=== PATIENT | male | born 1995 | race Caucasian/White ===

== ENCOUNTER → 2019-05-22 | Outpatient (CLI) | payer OTHER ==
[2019-05-22 16:31] LABS: Basophils # (A) 0.1 k/uL (0-0.2); Basophils % (A) 2 %; Eosinophils # (A) 0.4 k/uL (0-0.7); Eosinophils % (A) 7 %; HCT 46.8 % (39.0-53.0); HGB 15.5 gm/dL (13.0-17.5); Lymphocytes # (A) 2.1 k/uL (1.0-4.8); Lymphocytes % (A) 38 %; MCH 30.1 pg (25.0-35.0); MCHC 33.1 g/dL (31.0-37.0); MCV 91.1 fL (80.0-100.0); Mean Platelet Volume 6.6; Monocytes # (A) 0.3 k/uL (0-1.0); Monocytes % (A) 5 %; Neutrophils # (A) 2.4 k/uL (1.3-7.7); Neutrophils % (A) 45 %; Platelet Count 267 k/uL (150-450); RBC 5.14 m/uL (4.30-5.90); RDW 12.5 % (11.5-15.5); WBC 5.4 k/uL (3.8-10.6)
[2019-05-22 16:44] LABS: Potassium 4.1 mmol/L (3.5-5.1)
== END | disposition home or self-care (01) ==
LOC: LABPAT 16:09
PROVIDERS: ATTEND Orthopaedic Surgery
DX: Z01.812 Encounter for preprocedural laboratory examination (principal); M23.91 Unspecified internal derangement of right knee
CPT/HCPCS: 80051; 85025

== ENCOUNTER 2019-05-28 06:18 | Day surgery (SDC) | payer BC, OTHER ==
[2019-05-26 11:00] VITALS: BMI 28.7
--- NOTE | 2019-05-27 16:00 | HP ---
HISTORY AND PHYSICAL DATE OF SURGERY: 05/28/2019 Sahil Hurst is a 23-year-old patient seen with progressive right knee pain. We discussed options for treatment. He elected to proceed with right knee arthroscopy. Consent was obtained. PAST MEDICAL HISTORY: Noncontributory. PAST SURGICAL HISTORY: Right knee arthroscopy with ACL reconstruction. DAILY MEDICATIONS: None. ALLERGIES: NONE. SOCIAL HISTORY: Denies tobacco use. PHYSICAL EVALUATION OF THE RIGHT KNEE: Range of motion is 0 to 130. Mild effusion. Tenderness, medial and lateral joint lines. Positive medial Johnathon's. Positive lateral Johnathon's. Plus one Luanne. Good endpoint felt. Collateral ligaments are stable. RADIOGRAPHS: Radiographs of the right knee revealed Endobuttons to include one along the medial aspect of the knee. MRI of right knee revealed medial and lateral meniscal tears, single-graft ACL tear. IMPRESSION: Internal derangement of right knee with medial and lateral meniscal tears and possible ACL graft tear. PLAN: Right knee arthroscopy with partial meniscectomy and debridement. MMODL / IJN: [id number] /
[~2019-05-28 06:18] MED LIST: DEXAMETHASONE SOD PHOSPHATE 10 MG/ML 1 ML VIAL IV ONE; HYDROmorphone 0.5 MG/0.5 ML SYRINGE IVP PRN; LACTATED RINGERS 1,000 ML IV SCH; LIDOCAINE 1% 20 ML VIAL (10MG/ML) FOR IV START INTRADERMA PRN; MIDAZOLAM 2 MG/2 ML VIAL IV PRN; ONDANSETRON 4 MG/2 ML VIAL IVP ONE; SCOPOLAMINE 1.5MG/72HR PATCH TRANSDERM ONE
[2019-05-28] MEDS ORDERED: KETOROLAC 30 MG/ML 1 ML VIAL ONE (07:25)
[2019-05-28] MEDS ORDERED: LIDOCAINE 1% INJ 10MG/ML (20 ML MDV) ONE (07:25)
[2019-05-28] MEDS ORDERED: fentaNYL (PF) 50 MCG/ML 2 ML AMP ONE (07:25)
[2019-05-28] MEDS ORDERED: MEPERIDINE 50 MG/ML SYRINGE ONE (07:25)
[2019-05-28] MEDS ORDERED: MIDAZOLAM 2 MG/2 ML VIAL ONE (07:25)
[2019-05-28] MEDS ORDERED: PROPOFOL 10 MG/ML 20 ML VIAL IV ONE (07:25)
[2019-05-28] MEDS ORDERED: KETAMINE 10 MG/ML 20 ML VIAL ONE (07:25)
[2019-05-28] MEDS ORDERED: BUPIVACAINE (PF) 0.25% 30 ML VIAL SQ ONE (07:49)
[2019-05-28] MEDS ORDERED: SODIUM CHLORIDE 0.9% 1,000 ML IV ONE (08:29)
[2019-05-28 08:32] VITALS: TEMP 97.5
--- NOTE | 2019-05-28 08:37 | P.OP ---
Date of Procedure: 05/28/19 Preoperative Diagnosis: Internal derangement right knee Postoperative Diagnosis: 1. Tear medial meniscus right knee 2. Partial ACL tear right knee 3. Reactive synovitis medial, lateral and suprapatellar compartments right knee Procedure(s) Performed: 1. Arthroscopic partial medial meniscectomy right knee 2. Arthroscopic debridement partial ACL tear right knee 3. Arthroscopic partial synovectomy medial, lateral and suprapatellar compartments right knee Anesthesia: LUPILLOA, local Surgeon: Hudson Kaur Estimated Blood Loss (ml): 5 Pathology: none sent Condition: stable Disposition: PACU Indications for Procedure: 23-year-old patient seen with progressive right knee pain. After treatment options were discussed, he elected to proceed with arthroscopy. Operative Findings: See description of procedure Description of Procedure: Patient was taken to the operative suite. Patient underwent a general anesthetic by the department of anesthesia. Patient was given preoperative antibiotics. The right lower extremity was placed in a well-padded arthroscopic leg wang. The right leg was prepped and draped in the normal sterile orthopedic fashion. A lateral parapatellar and suprapatellar incision was made. Trochars were inserted. Arthroscopy was initiated. Suprapatellar pouch revealed diffuse thick reactive synovitis. The patellofemoral joint appeared to articulate congruently. There with grade 1 chondromalacia changes of the patella with no osteochondral tears present. The scope was guided into the medial gutter. No loose bodies or plica were identified. The scope was then guided into the medial compartment. A medial parapatellar incision was made. Trocar inserted followed by probe. There was a bucket-handle tear involving the medial meniscus. There were grade 1 chondromalacia changes of the medial femoral condyle. There was thick reactive synovitis anteriorly. I performed a partial medial meniscectomy. I performed a partial synovectomy decompressing the reactive synovitis. The residual meniscus was stable. Scope and probe were then guided into the intercondylar notch. There was an obvious ACL bundle tear. I debrided that out. One of the 2 bundles remained intact. There was some laxity but overall good stability of the remaining single bundle. The PCL was probed and felt to be intact. The scope and probe were then guided into lateral compartment. The lateral meniscus is probed and found to be stable. There was no chondromalacia. There was thick reactive synovitis anteriorly. I performed a partial synovectomy decompressing reactive synovitis. There was good decompression of the synovitis. The scope was in guided back into the suprapatellar compartment. I introduced a motorized shaver into the suprapatellar compartment. I debrided some piecemeal fragments of meniscus I encountered. I performed a partial synovectomy decompressing the reactive synovitis. The shaver was removed. I took one more look on the entire knee, no residual debris. Instruments were now removed from the joint. The joint was infiltrated with .25% Marcaine. Steri-Strips were applied to the portal sites. Sterile dressings were applied. The patient was placed into a SHIRLEY hose. No tourniquet was utilized. The patient was awakened, transferred to a bed and taken to recovery stable satisfactory condition.
[2019-05-28 09:30] VITALS: RESP 16
[2019-05-28 09:42] VITALS: BP 129/85; PULSE 69
== END 2019-05-28 10:00 | disposition home or self-care (01) ==
LOC: OR 06:18
PROVIDERS: ATTEND Orthopaedic Surgery
DX: S83.211A Bucket-handle tear of medial meniscus, current injury, right knee, initial encounter (principal); S83.511A Sprain of anterior cruciate ligament of right knee, initial encounter; M94.261 Chondromalacia, right knee; M65.861 Other synovitis and tenosynovitis, right lower leg; Z98.890 Other specified postprocedural states; Z79.899 Other long term (current) drug therapy; X58.XXXA Exposure to other specified factors, initial encounter
CPT/HCPCS: 29881; 29876; J2250; J1100; J2175; J0690; J2405; J2001; J3010; J1885; J2704